=== PATIENT | male | born 1985 | race Caucasian/White ===

== ENCOUNTER 2024-10-29 09:52 | Emergency (ER) | payer MEDICAID ==
[~2024-10-29] VITALS: Ht 177.8 cm; Wt 59.1 kg
[2024-10-29 10:12] VITALS: BP 127/84; PULSE 94; RESP 15; O2SAT 98
[2024-10-29 11:47] VITALS: TEMP 98.3
== END 2024-10-29 11:49 | disposition home or self-care (01) ==
LOC: ER 09:52
DX: F19.10 Other psychoactive substance abuse, uncomplicated (principal)
CPT/HCPCS: 99281